=== PATIENT | male | born 1985 | race Caucasian/White ===

== ENCOUNTER 2025-09-18 11:56 | Outpatient (REF) | payer BC, SELFPAY ==
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
--- OUTSIDE RECORDS SUMMARY | 2025-09-18 13:33 | XMS_ITS | Continuity of Care Document ---
Author Organization [facility], [facility] Address [address] [facility] [place] [address] [place] [address] Assessment No assessment recorded. Plan of Treatment Reminders Order Date Submit Date Provider Last Modified By Organization Details Last Modified Time Details Appointments ANNUAL EXAM 2024 11:00A M DR MARISCAL Not available Not available Not available ANNUAL EXAM 2025 12:00P M DR MARISCAL Not available Not available Not available Lab lipid panel, serum 2024 [facility], [address] [place] [address], [address], 09/18/2025 11:42:49 CBC 2024 025 [facility], [address] [place] [address], [address], 09/18/2025 11:34:50 CMP, serum or plasma 2024 025 [facility], [address] [place] [address], [address], 09/18/2025 11:34:50 TSH, serum or plasma 2024 025 [facility], [address] [place] [address], [address], 09/18/2025 11:34:50 food allergen panel, serum 2024 025 [facility], [address] [place] [address], [address], 09/18/2025 11:34:50 Referral None recorded. Procedures None recorded. Surgeries None recorded. Imaging None recorded. Medication Orders epinephri ne 0.3 mg/0.3 mL injection , auto-inje ctor 2024 [facility], [address] [place], [address], 09/18/2025 11:33:55 diclofena c sodium 75 mg tablet,de layed release 2024 [facility], [address] [place], [address], 09/18/2025 11:39:22 Patient TargetsNo targets recorded. Patient Instructions Encounter Date Encounter Id Patient Instructions Last Modified By Organization Details Last Modified Time 09/18/2025 [id number] vitamin D deficiency Not available 09/18/2025 11:33:53 tendon injury (tendinopathy): care instructions Not available 09/18/2025 11:39:19 Reason for Referral None Reported. Problems Name Problem SNOMED Code Status Onset Date Resolution Date Notes Provider Name and Address Organization Details Recorded Time Esophageal dysphagia 47799019 Active 2021 REYNALDO GARCIA [address] [place] [address], [address], [facility] 2 16:27:47 Peanut-ind uced anaphylaxi s 178962961 Active 2024 Luca Mariscal DO [address] [place] [address], [address], [facility] 5 11:29:23 Achilles bursitis 517752201 Active 2024 Luca Mariscal DO [address] [place] [address], [address], [facility] 11:38:24 Problem Notes None recorded. Medical Equipment [...] Avai lable Vitals Date Recorded Body weight Oxygen saturation Oxygen saturation in Arterial blood by Pulse oximetry Heart rate Systolic And Diastolic Provider Name and Address Organization Details Last Updated DateTime 5 68073.9 1 g 97 % 97 % 73 /min 118/70 mm[Hg] Sejal Hayes [facility] 5 11:10:45 Social History Question Answer Notes LastModified by Organizat ion Details LastModified Time Tobacco Smoking Status Never Smoker Iza roque [facility] 11/08/2018 14:07:11 What Was The [...] split virus, quadrivalent, preservative 0 completed Luca Mariscal DO [address] [place] [address], [address], [facility] 08/07/2020 09:04:44 Past Encounters Encounter ID Performer Location Encounter Start Date Encounter Closed Date Diagnosis/Indication Diagnosis SNOMED-CT Code Diagnosis ICD10 Code Diagnosis IMO Codes Diagnosis Note [id number] Luca Mariscal DO [facility] [address] [place] [address],[place] [address] 09/18/2025 10:59:34 09/18/2025 11:53:35 Active or passive immunization 609901481 Z23 utd Depression screening 171 499121 Z13.31 neg General ex amination of patient 095516858 Z00.01 14075613 doing wellhas evidence for heel bursitis on left heel Peanut-ind uced anaphylaxis 496914752 T78.01XD 3624805 Family his tory of coronary arteriosclerosis 242164582 Z82.49 862956 Achilles bursitis 882778 002 M77.51 00391112 Health Concerns Section Related Observation LastModified by Organization Detai ls LastModified Time None Recorded Concern Status LastModified by Organization Details LastModified Time None Recorded Payers Encounter Date Sequence Insurance Name Policy Number Policy Vazquez Covered Member ID Vazquez Member ID Guarantor Name 09/18/2025 1 [employer] [facility] [id number] Kunal Danielle [id number] Kunal Santos Notes Date Note Type Note Provider Name a nd Address Organization Details Recorded Time 5 text/html Annual WellnessReported by PatientSocial/Behavio ral HistoryFor diet and nutrition, patient reportshealthy diet. [...] but has omeprazole Luca Mariscal, DO [address] [facility], [place], [address], [facility] 09/18/2025 11:39:53
[2025-09-18 18:04] LABS: MANUAL DIFF FLAG NO
[2025-09-18 18:16] LABS: Hematocrit 45.0 % (42.0-52.0); Hemoglobin 14.9 g/dl (14.0-18.0); Imm Gran Abs Auto 0.02 X10*3/uL (0.00-0.03); Imm Gran Pct Auto 0.3 % (0.0-0.4); Lymphocytes Absolute Auto 1.5 X10*3/uL (1.2-4.9); Mean Corpuscular HGB Conc 33.1 g/dl (31.0-36.0); Mean Corpuscular Hemoglobin 28.9 pg (27.0-33.0); Mean Corpuscular Volume 87.2 fL (80.0-98.0); NRBC Abs Auto 0.000 X10*3/uL (0.0-0.012); NRBC Pct Auto 0.0 /100WBC (0.0-0.2); Platelet Count 194 X10*3/uL (160-400); Red Blood Count 5.16 X10*6/uL (4.60-5.80); White Blood Count 7.8 X10*3/uL (4.8-10.8)
[2025-09-18 18:35] LABS: Alanine Aminotransferase 27 U/L (0-40); Albumin Level 4.5 g/dL (3.5-5.0); Alkaline Phosphatase 83 U/L (39-117); Anion Gap 12 (12-20); Aspartate Amino Transferase 34 U/L (5-37); Blood Urea Nitrogen 17 mg/dL (9-16); Calcium 9.3 mg/dL (8.4-10.2); Carbon Dioxide 28 mmol/L (22-29); Chloride 104 mmol/L (96-108); Cholesterol 226 mg/dL (<200); Estimated Glomerular Filt Rate > 60; HDL Cholesterol 43 mg/dL (>40); Potassium 4.4 mmol/L (3.3-5.1); Sodium 140 mmol/L (135-145); Total Protein 7.5 g/dL (6.5-8.0); Triglycerides 81 mg/dL (<150)
[2025-09-18 18:51] LABS: Thyroid Stimulating Hormone 1.24 uIU/mL (0.32-4.0)
[2025-09-19 08:08] LABS: Class Almond 0/1; Class Brazil Nut 0; Class Cashew 0; Class Codfish 0; Class Cow's Milk 0/1; Class Egg white 0; Class Hazelnut 2; Class Macadamia Nut 0; Class Peanut 0; Class Salmon 0; Class Scallop 0; Class Sesame Seed 0; Class Shrimp 0; Class Soybean 0; Class Tuna 0; Class Walnut 0; Class Wheat 0; F345-IgE Macadmia Nut <0.10 kU/L
== END 2025-09-18 11:57 | disposition home or self-care (01) ==
LOC: HO.MANLDS 11:56
PROVIDERS: Visit Provider Internal Medicine
DX: Z13.6 Encounter for screening for cardiovascular disorders (principal); T78.01XD Anaphylactic reaction due to peanuts, subsequent encounter; Z82.49 Family history of ischemic heart disease and other diseases of the circulatory system
CPT/HCPCS: 36415; 80053; 80061; 84443; 85025; 86003